=== PATIENT | male | born 1945 | race Caucasian/White ===

== ENCOUNTER 2023-12-30 19:05 | Emergency (ER) | payer MEDICARE, OTHER ==
[~2023-12-30] VITALS: Ht 180.3 cm; Wt 86.2 kg
[2023-12-30] MEDS ORDERED: Tdap Vaccine 0.5 ML SYR (Adult Vaccine) IM ONE (19:15)
[2023-12-30] MEDS ORDERED: Bacitracin Zinc 14 GM TUBE T ONE (22:45)
== END 2023-12-30 22:54 | disposition home or self-care (01) ==
LOC: ED 19:05
DX: S01.81XA Laceration without foreign body of other part of head, initial encounter (principal); S61.301A Unspecified open wound of left index finger with damage to nail, initial encounter; Z88.6 Allergy status to analgesic agent; W10.9XXA Fall (on) (from) unspecified stairs and steps, initial encounter; Y93.89 Activity, other specified; Y92.89 Other specified places as the place of occurrence of the external cause; Y99.8 Other external cause status